=== PATIENT | male | born 1990 | race Two or more races ===

== ENCOUNTER 2025-05-09 07:00 | Day surgery (SDC) | payer OTHER ==
[2025-05-05 13:42] VITALS: BP 136/86
[~2025-05-09] VITALS: Ht 182.9 cm; Wt 106.6 kg
[~2025-05-09 07:00] MED LIST: CLARITIN10 M2 PO; DEPAKOTE ER500 MG PO; LASIX20 MG; PROZAC10 MG PO; TOPROL XL50 M1 PO
[2025-05-09] MEDS ORDERED: EPINEPHRINE HCL/PF 1 MG/ML AMPUL ONE (07:41)
[2025-05-09] MEDS ORDERED: LIDOCAINE HCL 1%/EPINEPHRINE 20ML VIAL IJ ONE (07:42)
[2025-05-09] MEDS ORDERED: POVIDONE-IODINE 118 ML BOTT TOP ONE (07:42)
[2025-05-09] MEDS ORDERED: CEFAZOLIN SODIUM 1,000 MG VIAL ONE (07:48)
[2025-05-09] MEDS ORDERED: CIPROFLOXACIN2.5 ML OTIC (08:53)
== END 2025-05-09 11:20 | disposition home or self-care (01) ==
LOC: CIR.AMB 07:00
PROVIDERS: ATTEND Otolaryngology Otology & Neurotology
DX: H73.822 Atrophic nonflaccid tympanic membrane, left ear (principal); H90.12 Conductive hearing loss, unilateral, left ear, with unrestricted hearing on the contralateral side